=== PATIENT | male | born 1995 | race Caucasian/White ===

== ENCOUNTER 2018-10-01 15:25 | Emergency (ER) | payer MEDICAID ==
[~2018-10-01] VITALS: Ht 177.8 cm; Wt 131.8 kg
[2018-10-01] MEDS ORDERED: IBUPROFEN 800 MG TABLET PO ONE (16:45)
[2018-10-01 16:58] VITALS: BP 143/78
== END 2018-10-01 17:02 | disposition home or self-care (01) ==
LOC: EMS 15:26
DX: M25.531 Pain in right wrist (principal)